=== PATIENT | female | born 1995 | race African-American/Black ===

== ENCOUNTER 2017-04-11 18:03 | Emergency (ER) | payer OTHER ==
[2017-04-11 18:30] VITALS: BP 111/74; PULSE 99; TEMP 99; BMI 22.7
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
== END 2017-04-11 19:18 | disposition home or self-care (01) ==
LOC: JERFT 18:03
DX: S13.4XXA Sprain of ligaments of cervical spine, initial encounter (principal); V49.59XA Passenger injured in collision with other motor vehicles in traffic accident, initial encounter; Y92.488 Other paved roadways as the place of occurrence of the external cause; Y93.89 Activity, other specified; Y99.8 Other external cause status
CPT/HCPCS: 84703; 99281-25

== ENCOUNTER 2024-11-09 13:21 | Emergency (ER) | payer OTHER ==
[2024-11-09 13:28] VITALS: BP 121/73; PULSE 70; RESP 18; TEMP 98; BMI 20.3
== END 2024-11-09 16:37 | disposition home or self-care (01) ==
LOC: JER 13:21 → JERFT 13:21
DX: N89.8 Other specified noninflammatory disorders of vagina (principal); Z03.823 Encounter for observation for suspected inserted (injected) foreign body ruled out
CPT/HCPCS: 99283-25